=== PATIENT | female | born 1940 | race Caucasian/White ===

== ENCOUNTER → 2016-11-22 | Outpatient (CLI) | payer OTHER ==
[~2016-11-22] MED LIST: ADVIL200 M3 PO; ASPIRIN81 M2 PO; ATORVASTATIN CA10 MG PO; CALCIUM1 TAB.CHEW PO; CENTRUM SILVER PO; COZAAR100 MG PO; FISH OIL500 MG PO; GLUCOSAMINE CHO1 TA1 PO; LASIX20 MG PO; PLETAL100 M1 PO
--- NOTE | ~2016-11-22 | US136 ---
[facility] A Service of [facility] RADIOLOGY TEXT RESULTS PATIENT: MIGNON FRANCES LOCATION: CNIV : 41 UNIT #: [id number] AGE: [address]: Mike Rodriguez MD SEX: F ORDER DR: [id number] [facility] [address] [place], [place] [address] [id number] O MR#: [id number] Acc #: [id number] NAME: MIGNON FRANCES : 1940 SEX: F STUDY DATE/TIME: 11/22/2016 10:49 UNIT: CNIV ROOM: STUDY DESCRIPTION: US U/L Ext Art Study [facility] Attending Physician: Mike Rodriguez M.D. Referring Physician: Mike Rodriguez M.D. Ordering Physician: Mike Rodriguez M.D. Primary Care Physician: Rama Humphreys M.D. MEDICAL IMAGING REPORT This report is preliminary unless electronic signature is present EXAM Ankle-brachial indices. HISTORY Bilateral carotid stenosis. FINDINGS The right brachial artery pressure is 158. The right dorsalis pedis pressure is 87, with ankle-brachial index of 0.55. The right posterior tibial pressure is 89, with ankle-brachial index of 0.56. The right digital pressure is 53, with a toe-brachial index of 0.34. The left brachial artery pressure is 157. The left dorsalis pedis pressure is 76, with an ankle-brachial index of 0.48. The left posterior tibial pressure is 87, with ankle-brachial index of 0.55. The left digital pressure is 53, with a toe-brachial index of 0.34. Ankle wave forms are blunted, bilaterally. The dorsalis pedis and posterior tibial wave forms appear monophasic. IMPRESSION 1. The right ELISEO is 0.56, consistent with moderate arterial insufficiency. 2. The left ELISEO is 0.55, consistent with moderate arterial insufficiency. Dictated by... Micah Serna M.D. THIS IS AN ELECTRONICALLY VERIFIED REPORT [facility] A Service of [facility] & [facility] RADIOLOGY TEXT RESULTS PATIENT: MIGNON FRANCES LOCATION: CNIV : 41 UNIT #: [id number] AGE: [address]: Mike Rodriguez MD SEX: F ORDER DR: Micah Serna M.D. at 11/23/2016 8:42 AM Amanda TD: 11/22/2016 18:48 JOB #: [id number] MEDICAL IMAGING REPORT Page 1 of 1 COPY
--- NOTE | ~2016-11-22 | US37 ---
[facility] A Service of [facility] & [facility] RADIOLOGY TEXT RESULTS PATIENT: MIGNON FRANCES LOCATION: CNIV : 41 UNIT #: [id number] AGE: [address]: Mike Rodriguez MD SEX: F ORDER DR: [id number] [facility] [address] [place], [place] [address] [id number] O MR#: [id number] Acc #: [id number] NAME: MIGNON FRANCES : 1940 SEX: F STUDY DATE/TIME: 11/22/2016 10:55 UNIT: CNIV ROOM: STUDY DESCRIPTION: US Carotid W/Doppler Bilateral Attending Physician: Mike Rodriguez M.D. Referring Physician: Mike Rodriguez M.D. Ordering Physician: Mike Rodriguez M.D. Primary Care Physician: Rama Humphreys M.D. MEDICAL IMAGING REPORT This report is preliminary unless electronic signature is present DATE OF EXAMINATION 11/22/2016 EXAMINATION Bilateral carotid duplex. CLINICAL HISTORY Known carotid stenosis. FINDINGS There is patent flow seen throughout the right common carotid, internal carotid and external carotid arteries. The right common carotid artery has diffuse, homogeneous irregular-appearing plaque, extending into the carotid bifurcation, where it appears more heterogeneous and echogenic. It extends into the external carotid artery as well as the internal carotid artery. The right common carotid artery peak velocity is 144 cm/sec. The right internal carotid artery peak systolic over end-diastolic velocities are: Proximal 85/16 cm/sec, mid 94/15 cm/sec, distal 90/18 cm/sec. The right external carotid artery peak velocity is 104 cm/sec, and vertebral artery 53 cm/sec. The right ICA:CCA ratio is 0.7. There is patent flow seen throughout the left common carotid, internal carotid and external carotid arteries. At the left carotid bifurcation, there is irregular heterogeneous plaque, that extends into the external and internal carotid arteries. The left common carotid artery peak velocity is 136 cm/sec. The left internal carotid artery peak systolic over end-diastolic velocities are: Proximal 238/49 cm/sec, mid 192/37 cm/sec, distal 76/19 cm/sec. The left external carotid artery peak velocity is 225 cm/sec, and vertebral artery 95 cm/sec. The left ICA:CCA ratio is 1.8. [facility] A Service of [facility] RADIOLOGY TEXT RESULTS PATIENT: MIGNON FRANCES LOCATION: CNIV : 41 UNIT #: [id number] AGE: [address]: Mike Rodriguez MD SEX: F ORDER DR: IMPRESSION 1. There is mild atherosclerosis of the right carotid artery, which is not hemodynamically significant by duplex criteria (less than 50%). 2. The left carotid artery has a high-grade stenosis by duplex criteria, greater than 70%. This is unchanged from the 04/2016 study. 3. Likely, moderate to high-grade stenosis of the left external carotid artery. 4. Vertebral flow is antegrade bilaterally. Dictated by... Micah Serna M.D. THIS IS AN ELECTRONICALLY VERIFIED REPORT Micah Serna M.D. at 11/23/2016 8:42 AM OBINNA/noemi TD: 11/22/2016 19:11 JOB #: [id number] MEDICAL IMAGING REPORT Page 1 of 1 COPY
== END | disposition home or self-care (01) ==
LOC: CNIV 10:11
DX: I73.9 Peripheral vascular disease, unspecified (principal); I65.23 Occlusion and stenosis of bilateral carotid arteries
CPT/HCPCS: 93880; 93922